=== PATIENT | female | born 1985 | race American Indian/Alaskan Native ===

== ENCOUNTER 2018-02-19 08:37 | Emergency (ER) | payer MEDICAID, MEDICARE, OTHER ==
[2018-02-19 08:46] VITALS: BP 145/82
[2018-02-19] MEDS ORDERED: PEPCID PO ONE (09:49)
[2018-02-19] MEDS ORDERED: DELTASONE PO ONE (09:49)
[2018-02-19] MEDS ORDERED: BENADRYL PO ONE (09:50)
--- NOTE | 2018-02-19 09:50 | Emergency Department Report ---
ED Allergic Reaction HPI - General Chief complaint: Allergic Reaction Stated complaint: ALLERGIC REACTION Time Seen by Provider: 02/19/18 09:43 Source: patient Mode of arrival: Ambulatory Limitations: No Limitations - History of Present Illness MD Complaint: allergic reaction, hives -: Sudden Exposure: unknown Symptoms: rash, itching Severity: mild Treatment Prior to Arrival: none Previous Allergy History: none - Related Data Previous Rx's Medication Instructions Recorded Last Taken Type cephALEXin [Keflex] 500 mg PO Q8HR #30 cap 02/15/18 Unknown Rx traMADol [Ultram] 50 mg PO Q6HR PRN #12 tablet 02/15/18 Unknown Rx Famotidine [Pepcid] 40 mg PO DAILY #10 tablet 02/19/18 Unknown Rx Mupirocin [Bactroban 2%] 1 applic TP TID #1 tube 02/19/18 Unknown Rx diphenhydrAMINE [Benadryl CAP] 25 mg PO Q6HR PRN #25 capsule 02/19/18 Unknown Rx predniSONE [Deltasone] 60 mg PO QDAY 5 Days tab 02/19/18 Unknown Rx Allergies Allergy/AdvReac Type Severity Reaction Status Date / Time No Known Allergies Allergy Verified 09/17/14 22:20 ED Review of Systems ROS: Stated complaint: ALLERGIC REACTION Other details as noted in HPI Comment: All other systems reviewed and negative Constitutional: denies: chills, fever Eyes: denies: eye pain, eye discharge, vision change ENT: denies: ear pain, throat pain Respiratory: denies: cough, shortness of breath, wheezing Cardiovascular: denies: chest pain, palpitations Endocrine: no symptoms reported Gastrointestinal: denies: abdominal pain, nausea, diarrhea Genitourinary: denies: urgency, dysuria, discharge Musculoskeletal: denies: back pain, joint swelling, arthralgia Skin: rash. denies: lesions Neurological: denies: headache, weakness, paresthesias Psychiatric: denies: anxiety, depression Hematological/Lymphatic: denies: easy bleeding, easy bruising ED Past Medical Hx - Past Medical History Previous Medical History?: Yes Hx Asthma: Yes - Surgical History Past Surgical History?: No - Social History Smoking Status: Never Smoker Substance Use Type: Alcohol - Medications Home Medications: Home Medications Medication Instructions Recorded Confirmed Last Taken Type cephALEXin [Keflex] 500 mg PO Q8HR #30 cap 02/15/18 Unknown Rx traMADol [Ultram] 50 mg PO Q6HR PRN #12 tablet 02/15/18 Unknown Rx Famotidine [Pepcid] 40 mg PO DAILY #10 tablet 02/19/18 Unknown Rx Mupirocin [Bactroban 2%] 1 applic TP TID #1 tube 02/19/18 Unknown Rx diphenhydrAMINE [Benadryl CAP] 25 mg PO Q6HR PRN #25 capsule 02/19/18 Unknown Rx predniSONE [Deltasone] 60 mg PO QDAY 5 Days tab 02/19/18 Unknown Rx ED Physical Exam - General Limitations: No Limitations General appearance: alert, in no apparent distress - Head Head exam: Present: atraumatic, normocephalic - Eye Eye exam: Present: normal appearance - ENT ENT exam: Present: mucous membranes moist - Neck Neck exam: Present: normal inspection - Respiratory Respiratory exam: Present: normal lung sounds bilaterally. Absent: respiratory distress - Cardiovascular Cardiovascular Exam: Present: regular rate, normal rhythm. Absent: systolic murmur, diastolic murmur, rubs, gallop - GI/Abdominal GI/Abdominal exam: Present: soft, normal bowel sounds - Extremities Exam Extremities exam: Present: normal inspection - Back Exam Back exam: Present: normal inspection - Neurological Exam Neurological exam: Present: alert, oriented X3 - Psychiatric Psychiatric exam: Present: normal affect, normal mood - Skin Skin exam: Present: warm, dry, intact, normal color, rash, urticaria ED Course Vital Signs 02/19/18 08:43 Temperature 99.0 F Pulse Rate 73 Respiratory 18 Rate Blood Pressure 145/82 O2 Sat by Pulse 97 Oximetry ED Medical Decision Making - Medical Decision Making Allergic Reaction Critical care attestation.: If time is entered above; I have spent that time in minutes in the direct care of this critically ill patient, excluding procedure time. ED Disposition Clinical Impression: Allergic reaction Qualifiers: Encounter type: initial encounter Qualified Code(s): T78.40XA - Allergy, unspecified, initial encounter Disposition: - TO HOME OR SELFCARE Is pt being admited?: No Does the pt Need Aspirin: No Condition: Stable Instructions: Allergies (ED) Additional Instructions: Please follow up with your regular doctor tomorrow morning. Return to the ED if your condition worsens. Prescriptions: diphenhydrAMINE [Benadryl CAP] 25 mg PO Q6HR PRN #25 capsule PRN Reason: Itching Famotidine [Pepcid] 40 mg PO DAILY #10 tablet Mupirocin [Bactroban 2%] 1 applic TP TID #1 tube predniSONE [Deltasone] 60 mg PO QDAY 5 Days tab Referrals: DERRICK ADKINS MD [Primary Care Provider] - 3-5 Days Time of Disposition: 09:56
== END 2018-02-19 10:11 | disposition home or self-care (01) ==
LOC: ED 08:37
DX: T78.40XA Allergy, unspecified, initial encounter (principal); J45.909 Unspecified asthma, uncomplicated; Y92.89 Other specified places as the place of occurrence of the external cause
CPT/HCPCS: 99282; J7512